=== PATIENT | female | born 1995 | race Caucasian/White ===

== ENCOUNTER → 2017-06-11 | Outpatient (CLI) | payer OTHER | LOC: M SMT 10:47 | DX: Z34.82 Encounter for supervision of other normal pregnancy, second trimester (principal); Z3A.19 19 weeks gestation of pregnancy | CPT/HCPCS: 76811 ==

== ENCOUNTER → 2017-08-04 | Outpatient (CLI) | payer OTHER ==
[2017-08-04 13:22] LABS: BASO # 0.1 10^3/uL (0.0-0.2); BASO % 0.4 % (0.0-1.0); EOS # 0.2 10^3/uL (0.0-0.50); EOS % 1.5 % (0.0-3.0); HEMATOCRIT 33.4 % (36.0-47.0); HEMOGLOBIN 11.2 g/dl (12.0-16.0); IMMATURE GRANULOCYTE % 1.6 % (0-3.0); LYMPH # 1.4 10^3/uL (1.5-6.5); LYMPH % 12.7 % (24.0-44.0); MEAN CORPUSCULAR HGB CONC 33.5 g/dl (32.0-36.5); MEAN CORPUSCULAR VOLUME 89.5 fl (80.0-96.0); MONO # 0.8 10^3/uL (0.0-0.8); NEUTROPHILS # 8.6 10^3/uL (1.8-7.7); NEUTROPHILS % 76.8 % (36.0-66.0); PLATELET COUNT, AUTOMATED 209 10^3/uL (150-450); RED BLOOD COUNT 3.73 10^6/uL (4.00-5.40); RED CELL DISTRIBUTION WIDTH 13.2 % (11.5-14.5); WHITE BLOOD COUNT 11.2 10^3/uL (4.0-10.0)
[2017-08-04 13:45] LABS: GLUCOSE CHALLENGE TEST 1 HOUR 134 MG/DL (LESS THAN 140)
== END ==
LOC: M SMT 09:47
DX: Z34.82 Encounter for supervision of other normal pregnancy, second trimester (principal); Z3A.00 Weeks of gestation of pregnancy not specified
CPT/HCPCS: 82950

== ENCOUNTER → 2017-08-07 | Outpatient (CLI) | payer OTHER ==
[2017-08-07 08:58] LABS: GLUCOSE, FASTING 79 MG/DL (LESS THAN 95)
[2017-08-07 09:57] LABS: 1 HR GLUCOSE 189 MG/DL (LESS THAN 180)
[2017-08-07 11:09] LABS: 2 HR GLUCOSE 78 MG/DL (LESS THAN 155)
[2017-08-07 12:07] LABS: 3 HR GLUCOSE 71 MG/DL (LESS THAN 140)
== END ==
LOC: M LAB 08:07
DX: Z34.82 Encounter for supervision of other normal pregnancy, second trimester (principal); Z3A.00 Weeks of gestation of pregnancy not specified
CPT/HCPCS: 82951

== ENCOUNTER → 2017-10-08 | Outpatient (REF) | payer OTHER | LOC: M LAB REF 13:22 | DX: Z34.83 Encounter for supervision of other normal pregnancy, third trimester (principal); Z3A.00 Weeks of gestation of pregnancy not specified | CPT/HCPCS: 87081 ==

== ENCOUNTER 2017-11-06 10:17 | Inpatient (IN) | payer OTHER ==
[2017-11-06] MEDS: LACTATED RINGER'S 1000 ML IV (12:11)
[2017-11-06] MEDS: LR 1,000 ML IV (12:12)
[2017-11-06 12:37] LABS: HEMOGLOBIN 11.3 g/dl (12.0-15.5); MEAN CORPUSCULAR HEMOGLOBIN 27.7 pg (27.0-33.0); MEAN CORPUSCULAR HGB CONC 33.2 g/dl (32.0-36.5); MEAN CORPUSCULAR VOLUME 83.3 fl (80.0-96.0); PLATELET COUNT, AUTOMATED 176 10^3/uL (150-450); RED BLOOD COUNT 4.08 10^6/uL (4.00-5.40); RED CELL DISTRIBUTION WIDTH 14.6 % (11.5-14.5); WHITE BLOOD COUNT 10.2 10^3/uL (4.0-10.0)
[2017-11-06] MEDS ORDERED: FENTANYL 2MCG/ML ROPIVACAINE 0.2% IN 0.9% NACL 200ML IVBAG As Ordered (15:32)
[2017-11-06] MEDS ORDERED: EPIDURAL/PCA KEYS XX (17:30)
[2017-11-06] MEDS ORDERED: ePHEDrine SULFATE 25 MG/5 ML(5MG/ML) SYRINGE IV (17:30)
[2017-11-06] MEDS ORDERED: LACTATED RINGER'S 1000 ML IV (17:30)
[2017-11-06] MEDS ORDERED: FENTANYL/ROPIVACAINE/NACL BAG 200 ML EPIDURAL (17:30)
[2017-11-06] MEDS ORDERED: NALOXONE INJ 0.4 MG/1 ML VIAL (J2310) IV (17:30)
[2017-11-06] MEDS ORDERED: EPIDURAL COMMENT XX (17:30)
[2017-11-06] MEDS ORDERED: diphenhydrAMINE INJ 50MG/ML VIAL (J1200) IV (17:30)
[2017-11-06] MEDS ORDERED: REFRIGERATOR IV KEYS XX (17:30)
[2017-11-06] MEDS ORDERED: ONDANSETRON 4MG/2ML VIAL (J2405) IV (17:30)
[2017-11-06] MEDS ORDERED: OXYTOCIN 30 UNITS IN 0.9% NaCl 500ML IV BAG (J2590) As Ordered (19:08)
[2017-11-06] MEDS ORDERED: LR 1,000 ML IV (21:57)
[2017-11-06] MEDS ORDERED: OXYTOCIN DRIP 30 UNITS in APPROPRIATE DILUENT 1 EA IV (22:00)
[2017-11-06] MEDS: OXYTOCIN DRIP 30 UNITS in APPROPRIATE DILUENT 1 EA IV (23:38)
[2017-11-06] MEDS ORDERED: ACETAMINOPHEN 500 MG TAB PO (23:45)
[2017-11-06] MEDS ORDERED: MOM 30ML SUSPENSION UDC PO (23:45)
[2017-11-06] MEDS ORDERED: DIBUCAINE 1% OINTMENT 30GM TOP (23:45)
[2017-11-06] MEDS ORDERED: METHYLERGONOVINE MALEATE 0.2 MG TAB PO (23:45)
[2017-11-06] MEDS ORDERED: ANUSOL HC CREAM 30GM TOP (23:45)
[2017-11-07] MEDS: PRENATAL VITAMINS CHEWABLE TABLET PO (08:48)
[2017-11-07] MEDS: RHOGAM 300 MCG (1500 IU) INJ (J2790) IM (11:25)
[2017-11-07] MEDS: MEASLES,MUMPS,RUBELLA VACCINE INJ (MMR-II) (90707) SC (11:26)
[2017-11-07] MEDS: IBUPROFEN 800 MG TAB PO ×2 (12:13→21:08)
[2017-11-07] MEDS: DOCUSATE SODIUM 100 MG CAP PO (21:07)
[2017-11-08] MEDS: PRENATAL VITAMINS CHEWABLE TABLET PO (08:11)
== END 2017-11-08 11:35 | disposition home or self-care (01) | DRG 775 ==
LOC: M LDO 10:17 → M OBS 11-07 00:38 → M LDI 10:45 → M OBS 11-07 12:51
PROVIDERS: Obstetrics & Gynecology
PROC: 10E0XZZ Delivery of Products of Conception, External Approach (ICD-10-PCS; principal; 2017-11-06)
DX: O48.0 Post-term pregnancy (principal); Z3A.40 40 weeks gestation of pregnancy; Z37.0 Single live birth

== ENCOUNTER → 2020-07-27 | Outpatient (CLI) | payer OTHER ==
[~2020-07-27] MED LIST: MOTR200T44 PO; MULTTAB20 PO; TYLE500T78 PO
[2020-07-27 15:38] LABS: CHLAMYDIA DNA AMPLIFICATION NEGATIVE (NEGATIVE); GC DNA AMPLIFICATION NEGATIVE (NEGATIVE)
== END ==
LOC: M WHC 09:19
PROVIDERS: ATTEND Obstetrics & Gynecology
DX: Z12.4 Encounter for screening for malignant neoplasm of cervix (principal); R10.2 Pelvic and perineal pain
CPT/HCPCS: 87661; G0123; G0463

== ENCOUNTER → 2020-08-11 | Outpatient (CLI) | payer OTHER ==
--- NOTE | 2020-08-11 11:29 | REP ---
INDICATION: R10.2 PELVIC PAIN COMPARISON: None. TECHNIQUE: Transabdominal pelvic ultrasound with color Doppler evaluation of the ovaries. FINDINGS: Bladder is unremarkable and measures 6.9 x 9.2 x 3.7 cm (123 cc). Normal anteverted uterus measures 8.5 x 4.3 x 5.9 cm. The endometrial complex measures 10 mm thickness. No discrete uterine or endometrial abnormalities are appreciated. Bilateral ovaries are normal in appearance and vascularity without evidence for torsion. Right ovary measures 4.3 x 1.4 x 2.6 cm; R I = 0.36. Left ovary measures 3.3 x 2.2 x 2.6 cm; R I = 0.28. Small amount of free fluid is nonspecific and likely physiologic. IMPRESSION: Essentially normal pelvic ultrasound. <Electronically signed by Srikanth Valle > 08/11/20 [id number]
== END ==
LOC: M WHC 10:38
PROVIDERS: ATTEND Obstetrics & Gynecology
DX: R10.2 Pelvic and perineal pain (principal)

== ENCOUNTER → 2021-12-11 | Outpatient (CLI) | payer OTHER ==
[2021-12-11 14:17] LABS: HEMOGLOBIN 13.2 g/dl (12.0-15.5); MEAN CORPUSCULAR HEMOGLOBIN 29.3 pg (27.0-33.0); MEAN CORPUSCULAR HGB CONC 33.8 g/dl (32.0-36.5); MEAN CORPUSCULAR VOLUME 86.7 fl (80.0-96.0); PLATELET COUNT, AUTOMATED 221 10^3/uL (150-450)
[2021-12-11 15:34] LABS: HEPATITIS C VIRUS ABY INDEX 0.1 INDEX (<0.8); HIV 1&2 SCREEN CENTAUR NEGATIVE (NEGATIVE)
[2021-12-11 15:49] LABS: GC DNA AMPLIFICATION NEGATIVE (NEGATIVE)
== END ==
LOC: M PLALAB 10:08
PROVIDERS: ATTEND Advanced Practice Midwife
DX: Z34.81 Encounter for supervision of other normal pregnancy, first trimester (principal)
CPT/HCPCS: 36415; 85027; 86762; 86780; 86803; 86850; 86900; 86901; 87086; 87340; 87389; 87810; 87850; G0463

== ENCOUNTER → 2022-01-08 | Outpatient (CLI) | payer OTHER | LOC: M WHC 09:53 | PROVIDERS: ATTEND Obstetrics & Gynecology | DX: Z34.82 Encounter for supervision of other normal pregnancy, second trimester (principal); Z3A.19 19 weeks gestation of pregnancy | CPT/HCPCS: 76811; G0463 ==

== ENCOUNTER → 2022-02-07 | Outpatient (CLI) | payer OTHER | LOC: M WHC 08:29 | PROVIDERS: ATTEND Advanced Practice Midwife | DX: Z34.92 Encounter for supervision of normal pregnancy, unspecified, second trimester (principal); Z3A.23 23 weeks gestation of pregnancy ==

== ENCOUNTER → 2022-02-22 | Outpatient (CLI) | payer OTHER ==
[2022-02-22 14:20] LABS: HEMATOCRIT 32.4 % (36.0-47.0); HEMOGLOBIN 10.9 g/dl (12.0-15.5); MEAN CORPUSCULAR HEMOGLOBIN 30.4 pg (27.0-33.0); MEAN CORPUSCULAR HGB CONC 33.6 g/dl (32.0-36.5); MEAN CORPUSCULAR VOLUME 90.5 fl (80.0-96.0); PLATELET COUNT, AUTOMATED 188 10^3/uL (150-450); RED BLOOD COUNT 3.58 10^6/uL (4.00-5.40); WHITE BLOOD COUNT 8.7 10^3/uL (4.0-10.0)
[2022-02-22 16:18] LABS: GC DNA AMPLIFICATION NEGATIVE (NEGATIVE)
== END ==
LOC: M PLALAB 09:07
PROVIDERS: ATTEND Advanced Practice Midwife
DX: Z34.92 Encounter for supervision of normal pregnancy, unspecified, second trimester (principal); Z3A.00 Weeks of gestation of pregnancy not specified

== ENCOUNTER → 2022-02-26 | Outpatient (REF) | payer OTHER | LOC: M PLALAB 12:13 | PROVIDERS: ATTEND Advanced Practice Midwife | DX: O99.810 Abnormal glucose complicating pregnancy (principal) ==

== ENCOUNTER → 2022-04-29 | Outpatient (REF) | payer OTHER | LOC: M SFHCWAGY 10:13 | PROVIDERS: ATTEND Obstetrics & Gynecology | DX: Z36.89 Encounter for other specified antenatal screening (principal); Z3A.36 36 weeks gestation of pregnancy ==

== ENCOUNTER 2022-05-28 14:39 | Inpatient (IN) | payer OTHER ==
[~2022-05-28] VITALS: Ht 167.6 cm; Wt 69.5 kg
[2022-05-28] VITALS (20 sets, daily range): BP systolic 94–127; BP diastolic 51–77
[2022-05-28] MEDS ORDERED: HOME MED LIST COMPLETE! XX SCH (15:00)
[2022-05-28] MEDS ORDERED: TRANEXAMIC ACID INJection 1,000 MG in NS 100 ML IV PRN (15:50)
[2022-05-28] MEDS ORDERED: OXYTOCIN DRIP 30 UNITS in IV 1 EA IV PRN (15:50)
[2022-05-28] MEDS ORDERED: METHYLERGONOVINE MALEATE 0.2 MG/ML VIAL (J2210) IM PRN (15:50)
[2022-05-28] MEDS ORDERED: LIDOCAINE 1% MDV 20ML VIAL INFIL PRN (15:50)
[2022-05-28 16:19] LABS: HEMATOCRIT 30.8 % (36.0-47.0); MEAN CORPUSCULAR HEMOGLOBIN 27.2 pg (27.0-33.0); MEAN CORPUSCULAR HGB CONC 32.5 g/dl (32.0-36.5); MEAN CORPUSCULAR VOLUME 83.7 fl (80.0-96.0); PLATELET COUNT, AUTOMATED 216 10^3/uL (150-450); RED BLOOD COUNT 3.68 10^6/uL (4.00-5.40); WHITE BLOOD COUNT 17.7 10^3/uL (4.0-10.0)
[2022-05-28] MEDS ORDERED: FENTANYL 2MCG/ML ROPIVACAINE 0.2% IN 0.9% NACL 100ML IVBAG As Ordered ONE (16:54)
[2022-05-28] MEDS ORDERED: LR 500 ML IV PRN (17:00)
[2022-05-28] MEDS ORDERED: EPIDURAL/PCA KEYS XX PRN (17:00)
[2022-05-28] MEDS ORDERED: FENTANYL/ROPIVACAINE/NACL BAG 100 ML EPIDURAL SCH (17:00)
[2022-05-28] MEDS ORDERED: NALOXONE INJ 0.4MG/1ML VIAL IV PRN (17:00)
[2022-05-28] MEDS ORDERED: diphenhydrAMINE 50MG/ML VIAL IV PRN (17:00)
[2022-05-28] MEDS ORDERED: ONDANSETRON 4MG 2ML VIAL IV PRN (17:00)
[2022-05-28] MEDS ORDERED: LR 1,000 ML IV SCH (17:10)
[2022-05-28] MEDS: ePHEDrine SULFATE 25 MG/5 ML(5MG/ML) SYRINGE IVP PRN ×2 (18:01→18:13)
[2022-05-28] MEDS ORDERED: OXYTOCIN 30 UNITS IN 0.9% NaCl 500ML IV BAG (J2590) As Ordered ONE (18:30)
[2022-05-28] MEDS ORDERED: IBUPROFEN 600MG TAB PO PRN (21:00)
[2022-05-28] MEDS ORDERED: ANUSOL HC CREAM 30GM TOP PRN (21:00)
[2022-05-28] MEDS ORDERED: METHYLERGONOVINE MALEATE 0.2 MG TAB PO PRN (21:00)
[2022-05-28] MEDS ORDERED: DIBUCAINE 1% OINTMENT 30GM TOP PRN (21:00)
[2022-05-28] MEDS ORDERED: OXYTOCIN DRIP 30 UNITS in IV 1 EA IV SCH (21:00)
[2022-05-28] MEDS ORDERED: ACETAMINOPHEN 500 MG TAB PO PRN (21:00)
[2022-05-28] MEDS ORDERED: DOCUSATE SODIUM 100MG CAPSULE PO PRN (21:00)
[2022-05-28] MEDS ORDERED: RHOGAM 300 MCG (1500 IU) INJ (J2790) IM SCH (21:00)
[2022-05-28] MEDS ORDERED: MOM 30ML SUSPENSION UDC PO PRN (21:00)
[2022-05-29] MEDS: IBUPROFEN 800 MG TAB PO PRN ×2 (02:02→16:11)
[2022-05-29 06:08] VITALS: BP 109/57
[2022-05-29] MEDS: PRENATAL VITAMINS CHEWABLE TABLET PO SCH (09:16)
[2022-05-29 18:00] VITALS: BP 95/52
[2022-05-30] MEDS: ACETAMINOPHEN TAB 650MG DOSE (2X325MG) PO PRN ×2 (05:29→07:00)
[2022-05-30 06:00] VITALS: BP 102/70
[2022-05-30] MEDS: PRENATAL VITAMINS CHEWABLE TABLET PO SCH (08:43)
[2022-05-30] MEDS ORDERED: MEASLES,MUMPS,RUBELLA VACCINE INJ (MMR-II) (90707) SC.IMMUN ONE (09:00)
[2022-05-30] MEDS ORDERED: ACET-683 PO (11:21)
== END 2022-05-30 13:10 | disposition home or self-care (01) | DRG 807 ==
LOC: M LDO 14:39 → M LDI 15:38 → M OBS 22:27
PROVIDERS: ADMIT Obstetrics & Gynecology; ATTEND Obstetrics & Gynecology
PROC: 10E0XZZ Delivery of Products of Conception, External Approach (ICD-10-PCS; principal; 2022-05-28)
DX: O80 Encounter for full-term uncomplicated delivery (principal); Z37.0 Single live birth; Z3A.40 40 weeks gestation of pregnancy

== ENCOUNTER → 2022-08-12 | Outpatient (CLI) | payer OTHER ==
[~2022-08-12] MED LIST changes: +ACET-683 PO
[2022-08-12 13:44] LABS: BASO # 0.1 10^3/uL (0.0-0.2); EOS # 0.2 10^3/uL (0.0-0.5); HEMATOCRIT 39.9 % (36.0-47.0); HEMOGLOBIN 12.8 g/dl (12.0-15.5); MEAN CORPUSCULAR HEMOGLOBIN 27.9 pg (27.0-33.0); MEAN CORPUSCULAR HGB CONC 32.1 g/dl (32.0-36.5); MEAN CORPUSCULAR VOLUME 86.9 fl (80.0-96.0); MONO # 0.6 10^3/uL (0.0-0.8); MONO % 10.6 % (2.0-8.0); NEUTROPHILS % 51.2 % (36.0-66.0); PLATELET COUNT, AUTOMATED 240 10^3/uL (150-450); RED BLOOD COUNT 4.59 10^6/uL (4.00-5.40); WHITE BLOOD COUNT 5.9 10^3/uL (4.0-10.0)
[2022-08-12 14:25] LABS: IRON (FE) 114 UG/DL (50-170); PERCENT SATURATION 32.2 % (13.2-45.0); TOTAL IRON BINDING CAPACITY 354 UG/DL (250-425)
[2022-08-12 15:52] LABS: HEMOGLOBIN A1c 4.9 % (4.0-6.0)
[2022-08-12 16:02] LABS: ALBUMIN 4.2 G/DL (3.2-5.2); ALKALINE PHOSPHATASE 64 U/L (46-116); ALT/SGPT 59 U/L (7.0-40); AST/SGOT 29 U/L (<34); BILIRUBIN,TOTAL 1.8 MG/DL (0.3-1.2); BLOOD UREA NITROGEN 16 MG/DL (9-23); CALCIUM LEVEL 9.4 MG/DL (8.5-10.1); CARBON DIOXIDE LEVEL 26 MMOL/L (20-31); CHLORIDE LEVEL 105 MMOL/L (98-107); CREATININE FOR GFR 0.88 MG/DL (0.55-1.30); FOLATE > 24.00 NG/ML (>5.4); FREE T4 1.12 NG/DL (0.89-1.76); GLOMERULAR FILTRATION RATE > 60.0 (>60); GLUCOSE, FASTING 78 MG/DL (60-100); POTASSIUM SERUM 4.2 MMOL/L (3.5-5.1); SODIUM LEVEL 141 MMOL/L (136-145); THYROID STIMULATING HORMONE 1.586 uIU/ML (0.55-4.78); TOTAL 25(OH) VITAMIN D 16.1 NG/ML (20.0-100.0); VITAMIN B12 LEVEL 475 PG/ML (211-911)
== END ==
LOC: M PLALAB 09:37
PROVIDERS: ATTEND Family Medicine
DX: Z13.29 Encounter for screening for other suspected endocrine disorder (principal); Z13.0 Encounter for screening for diseases of the blood and blood-forming organs and certain disorders involving the immune mechanism

== ENCOUNTER → 2022-10-08 | Outpatient (REF) | payer OTHER | LOC: M SFHCWAGY 10:28 | PROVIDERS: ATTEND Obstetrics & Gynecology | DX: Z12.4 Encounter for screening for malignant neoplasm of cervix (principal) ==

== ENCOUNTER → 2022-11-13 | Outpatient (CLI) | payer OTHER | LOC: M PLAIMG 15:36 | PROVIDERS: ATTEND Nurse Practitioner Adult Health | DX: M26.603 Bilateral temporomandibular joint disorder, unspecified (principal) ==

== ENCOUNTER → 2023-12-23 | Outpatient (CLI) | payer OTHER ==
[2023-12-23 15:21] LABS: HEMOGLOBIN A1c 4.8 % (4.0-6.0)
[2023-12-23 15:41] LABS: ALBUMIN 4.3 G/DL (3.2-5.2); ALKALINE PHOSPHATASE 47 U/L (46-116); ALT/SGPT 13 U/L (7.0-40); AST/SGOT < 8 U/L (<34); BILIRUBIN,TOTAL 2.3 MG/DL (0.3-1.2); BLOOD UREA NITROGEN 12 MG/DL (9-23); CALCIUM LEVEL 9.2 MG/DL (8.5-10.1); CARBON DIOXIDE LEVEL 28 MMOL/L (20-31); CHLORIDE LEVEL 105 MMOL/L (98-107); CREATININE FOR GFR 0.74 MG/DL (0.55-1.30); GLOMERULAR FILTRATION RATE > 60.0 (>60); GLUCOSE, FASTING 84 MG/DL (60-100); POTASSIUM SERUM 4.3 MMOL/L (3.5-5.1); SODIUM LEVEL 139 MMOL/L (136-145); TOTAL PROTEIN 6.8 G/DL (5.7-8.2)
== END ==
LOC: M PLALAB 09:52
PROVIDERS: ATTEND Nurse Practitioner Adult Health
DX: E16.2 Hypoglycemia, unspecified (principal)